=== PATIENT | female | born 1965 | race Caucasian/White ===

== ENCOUNTER → 2016-04-07 | Outpatient (CLI) | payer BC ==
[~2016-04-07] MED LIST: NORE-90 PO; OMEP40CA PO; RIZA10TA18 PO; TRIA3AER NAE
== END | disposition home or self-care (01) ==
LOC: C.LAB1850 08:42
PROVIDERS: ATTEND Obstetrics & Gynecology
DX: Z78.0 Asymptomatic menopausal state (principal)

== ENCOUNTER → 2016-04-07 | Outpatient (CLI) | payer BC | END | disposition home or self-care (01) | LOC: C.PAPS 14:48 | PROVIDERS: ATTEND Obstetrics & Gynecology | DX: Z01.419 Encounter for gynecological examination (general) (routine) without abnormal findings (principal) ==

== ENCOUNTER → 2016-04-20 | Outpatient (CLI) | payer BC ==
--- NOTE | 2016-04-20 14:17 | MAMMOGRAPHY REPORT ---
UNILATERAL LEFT DIGITAL DIAGNOSTIC MAMMOGRAM WITH CAD: 04/20/2016 CLINICAL HISTORY: Six-month follow-up of left breast calcifications. TECHNIQUE: Current study was also evaluated with a Computer Aided Detection (CAD) system. Left CC and MLO views and spot magnification left CC and ML views were obtained. COMPARISON: Comparison is made to exams dated: 10/18/2015 mammogram, 10/13/2015 mammogram, 10/09/2014 mammogram, 10/04/2012 mammogram, 10/08/2013 mammogram, and 10/03/2011 mammogram - [facility] nter. BREAST COMPOSITION: The tissue of the left breast is extremely dense, which lowers the sensitivity of mammography. FINDINGS: Spot magnification views of the left breast again demonstrate a small 3 mm cluster of lam nt punctate calcifications in the left medial breast at approximately 9:00. The calcifications are stable compared to spot magnification views dated October 2015. In retrospect, the calcifications were present on prior exams including the MLO view from the September 2013 exam. The calcifications may be v ascular in origin, as seen more anteriorly and medially within the left breast. The calcifications are probably benign given long-term stability. The remainder of the left breast is stable compared to prior exams, without suspicious masses, calci fications, or areas of architectural distortion noted. IMPRESSION: ACR-BI-RADS CATEGORY 3: PROBABLY BENIGN Small 3 mm cluster of calcifications in the left 9:00 breast is stable compared to the October 2015 exa m, and is likely stable dating back to the September 2013 exam. Given the long-term stability, the calci fications are probably benign. Recommend bilateral diagnostic mammograms in 6 months, to confirm on e-year stability of the calcifications on spot magnification views, and for routine mammography of t he right breast. The patient has been verbally notified of the results. Approximately 10% of breast cancers are not detected with mammography. A negative mammographic repor t should not delay biopsy if a clinically suggestive mass is present. Shayna Ho M.D. /:04/20/2016 08:24:58 Front Elevator Operator: Marylin SLOAN)(Jovani), [facility] letter sent: Follow Up Recommended 3 BI-RADS Code: ACR-BI-RADS Category 3: Probably Benign
== END | disposition home or self-care (01) ==
LOC: C.MAMM 07:54
PROVIDERS: ATTEND Family Medicine
DX: R92.8 Other abnormal and inconclusive findings on diagnostic imaging of breast (principal)

== ENCOUNTER → 2016-10-19 | Outpatient (CLI) | payer BC ==
--- NOTE | 2016-10-19 15:42 | MAMMOGRAPHY REPORT ---
BILATERAL DIGITAL DIAGNOSTIC MAMMOGRAM TOMOSYNTHESIS WITH CAD: 10/19/2016 CLINICAL HISTORY: 51-year-old woman presents to follow-up a probably benign cluster of punctate micro calcifications in the 9:00 left breast. Also time of annual bilateral screening exam. TECHNIQUE: Bilateral CC and MLO 2-D digital and tomosynthesis images, spot magnification left CC and ML views were obtained. Current study was also evaluated with a Computer Aided Detection (CAD) lovee bianca. COMPARISON: Comparison is made to exams dated: 04/20/2016 mammogram, 10/18/2015 mammogram, 10/13/2015 m ammogram, 10/09/2014 mammogram, 10/08/2013 mammogram, and 10/04/2012 mammogram - [facility]. BREAST COMPOSITION: The tissue of both breasts is extremely dense, which lowers the sensitivity of m ammography. FINDINGS: The breast parenchymal pattern is similar to his prior exams. There is a stable nodular as ymmetry in the medial posterior left breast on the CC view, that appears similar on all available kaya or mammograms dating back to at least 08/09/2009, therefore likely benign. No obvious new mass, new calcifications, focal area of architectural distortion or developing asymmetry is seen. On the spot magnification views, the 3 mm grouping of punctate microcalcifications in the 9:00 middle one third o f the left breast are again seen and are stable comparing back to spot magnification views performed 10/18/2015. They were also likely present on standard mammograms dating back to at least 2013, there fore likely benign. Given the slight increased conspicuity on recent mammograms, another follow-up d iagnostic mammogram with repeat spot magnification views is recommended in 12 months. Annual right m ammography will be due at that time. IMPRESSION: ACR-BI-RADS CATEGORY 3: PROBABLY BENIGN Stable bilateral mammograms, including a 3 mm grouping of punctate microcalcifications in the 9:00 le ft breast. Another 12 month follow-up diagnostic mammogram including spot magnification views is rec ommended to ensure longer stability. These results and recommendations were discussed with the patient at the time of the exam. Approximately 10% of breast cancers are not detected with mammography. A negative mammographic report should not delay biopsy if a clinically suggestive mass is present. Rose Mary Rojo M.D. ay/:10/19/2016 14:14:16 Global Marketing Intern: Fidnecio Baker RT(R)(M), [facility] letter sent: Follow Up Recommended 3 BI-RADS Code: ACR-BI-RADS Category 3: Probably Benign
== END ==
LOC: C.MAMM 09:04
PROVIDERS: ATTEND Physician Assistant
DX: R92.0 Mammographic microcalcification found on diagnostic imaging of breast (principal)

== ENCOUNTER → 2017-04-09 | Outpatient (CLI) | payer OTHER | END | disposition home or self-care (01) | LOC: C.PAPS 16:29 | PROVIDERS: ATTEND Obstetrics & Gynecology | DX: Z01.419 Encounter for gynecological examination (general) (routine) without abnormal findings (principal) ==

== ENCOUNTER → 2017-04-25 | Outpatient (CLI) | payer OTHER ==
[2017-04-25 12:07] LABS: BASO % 0.5 %; BASO ABS # 0.04 K/uL (0-0.2); EOS % 3.6 %; EOS ABS # 0.27 K/uL (0-0.5); HEMOGLOBIN 13.2 g/dL (12.0-16.0); IG# 0.03 K/uL (0.00-0.02); LYMPH % 30.8 %; MEAN CELL VOLUME 92.3 fL (80-100); MEAN CORPUSCULAR HEMOGLOBIN 29.7 pg (25-34); MEAN CORPUSCULAR HGB CONC 32.2 g/dl (32-36); MEAN PLATELET VOLUME 11.9 fL (7.4-10.4); MONO % 5.2 %; MONO ABS # 0.39 K/uL (0.11-0.59); NEUT % 59.5 %; NEUT ABS # 4.44 K/uL (1.4-6.5); PLATELET COUNT 229 K/uL (130-400); RED CELL DISTRIBUTION WIDTH SD 43.6 fL (36.4-46.3); WHITE BLOOD COUNT 7.47 K/uL (4.8-10.8)
[2017-04-25 12:45] LABS: TRANSFERRIN 396 mg/dl (200-360)
== END | disposition home or self-care (01) ==
LOC: C.LAB1850 10:43
PROVIDERS: ATTEND Internal Medicine
DX: D50.9 Iron deficiency anemia, unspecified (principal)

== ENCOUNTER → 2017-10-19 | Outpatient (CLI) | payer OTHER ==
--- NOTE | 2017-10-22 07:43 | MAMMOGRAPHY REPORT ---
BILATERAL DIGITAL DIAGNOSTIC MAMMOGRAM TOMOSYNTHESIS WITH CAD: 10/19/2017 CLINICAL HISTORY: 12 month follow-up of left breast calcifications. Due for annual mammography of the right breast. TECHNIQUE: The study was acquired using full field digital technology and interpreted from soft copy. Breast tomosynthesis in addition to standard 2D mammography was performed. Current study was also ev aluated with a Computer Aided Detection (CAD) system. Bilateral CC and MLO 2D and tomosynthesis imag es and spot magnification left CC and ML views were obtained. COMPARISON: Comparison is made to exams dated: 10/19/2016 mammogram, 04/20/2016 mammogram, 10/18/2015 m ammogram, 10/13/2015 mammogram, 10/09/2014 mammogram, and 10/08/2013 mammogram - [facility] nter. BREAST COMPOSITION: The tissue of both breasts is extremely dense, which lowers the sensitivity of ma mmography. FINDINGS: Spot magnification views of the left breast again demonstrate a small 3 mm cluster of punct ate calcifications within the left 9:00 breast. The calcifications are stable on spot magnification views dating back to at least the October 2015 exam, and are considered benign given the morphology and long-term stability. The remainder of both breasts are stable compared to prior exams, without suspi cious masses, calcifications, or areas of architectural distortion noted. IMPRESSION: ACR BI-RADS CATEGORY 2: BENIGN Small 3 mm cluster of calcifications in the left 9:00 breast is stable dating back to the October 2015 e xam, and is considered benign given the morphology and long-term stability. There is no mammographic evidence of malignancy in either breast. A 1 year screening mammogram is recommended.(10/20/2018) The patient has been verbally notified of the results. Some breast cancers are not detected with mammography. A negative mammographic report should not amanda y biopsy if a clinically suggestive mass is present. Shayna Ho M.D. /:10/19/2017 11:33:10 Truck Repair Service Estimator: RT Rohan(R)(M), [facility] letter sent: Normal 1/2 BI-RADS Code: ACR BI-RADS Category 2: Benign
== END | disposition home or self-care (01) ==
LOC: C.MAMM 07:53
PROVIDERS: ATTEND Internal Medicine
DX: R92.1 Mammographic calcification found on diagnostic imaging of breast (principal); Z87.898 Personal history of other specified conditions